=== PATIENT | female | born 2005 | race Caucasian/White ===

== ENCOUNTER 2023-02-05 12:28 | Emergency (ER) | payer MEDICAID ==
[~2023-02-05] VITALS: Ht 185.4 cm; Wt 98.2 kg
[2023-02-05 12:39] VITALS: BP 98/53; PULSE 89; RESP 16; TEMP 98.1
== END 2023-02-05 13:36 | disposition left against medical advice (07) ==
LOC: EMS 12:29
DX: M25.571 Pain in right ankle and joints of right foot (principal); F12.90 Cannabis use, unspecified, uncomplicated
CPT/HCPCS: 99281; Z7502